=== PATIENT | male | born 1970 | race Native Hawaiian/Other Pacific Islander ===

== ENCOUNTER → 2016-09-25 | Outpatient (CLI) | payer OTHER, MEDICAID | LOC: FIMAGING 10:58 | PROVIDERS: ATTEND Specialist | DX: I86.1 Scrotal varices (principal) ==

== ENCOUNTER → 2018-01-01 | Outpatient (CLI) | payer OTHER, MEDICAID | LOC: FIMAGING 11:22 | PROVIDERS: ATTEND Family Medicine | DX: M19.071 Primary osteoarthritis, right ankle and foot (principal); M77.31 Calcaneal spur, right foot ==